=== PATIENT | female | born 1955 | race Caucasian/White ===

== ENCOUNTER → 2016-10-11 | Outpatient (CLI) | payer OTHER ==
[~2016-10-11] MED LIST: CETI-273 PO; FENO145T20 PO; GADOBUTROL 10mMol/10ml INJECTION IV ONE; OMEG-33 PO; SALINE FLUSH 10ml SYRINGE ONE; [UNRECOGNIZED DRUG - CODE] PO
[2016-10-11 17:12] LABS: CREATININE 0.8 MG/DL (0.7-1.2)
--- NOTE | 2016-10-12 08:20 | DI ---
Indication: ITS.REASON: D32.9 BENIGN NEOPLASM OF MENINGES, UNSPECIFIED PROCEDURE: MRI BRAIN W/WO CONTRAST: ENCOUNTER: Subsequent COMPARISONS: 12/07/2015, 05/20/2015 TECHNIQUE: Multiplanar, multisequence, MR imaging of the head with and without contrast was acquired. CONTRAST: 7.5 mL of Gadavist FINDINGS: No restricted diffusion is seen to suggest recent ischemic infarction. The normal croft-white matter differentiation is maintained. No intra-axial or extra-axial hemorrhage seen. Unchanged approximately 1.5 cm enhancing left frontal parafalcine dural based mass again consistent with a meningioma. No mass effect or midline shift. No underlying T2/FLAIR hyperintensity of the brain parenchyma to suggest compressive edema. No other abnormal postcontrast enhancement. The ventricles and cerebral sulci are normal in size, shape, and configuration without evidence of hydrocephalus. The basilar cisterns are patent. Normal flow void seen within the intracranial arterial and venous structures indicating patency. The paranasal sinuses and mastoid air cells are well-aerated. The orbits and globes appear normal. IMPRESSION: Unchanged 1.5 cm left frontal parafalcine meningioma. .
== END ==
LOC: IMA 16:05
PROVIDERS: ATTEND Radiology Radiation Oncology
DX: D32.9 Benign neoplasm of meninges, unspecified (principal)
CPT/HCPCS: 70553; 82565; A9585